=== PATIENT | male | born 1990 | race African-American/Black ===

== ENCOUNTER 2016-07-13 13:15 | Emergency (ER) | payer MEDICAID ==
[~2016-07-13] VITALS: Ht 170.2 cm; Wt 76.0 kg
[2016-07-13 14:47] VITALS: BP 103/67
== END 2016-07-13 16:26 | disposition home or self-care (01) ==
LOC: ER 15:24
DX: Z48.02 Encounter for removal of sutures (principal); F17.210 Nicotine dependence, cigarettes, uncomplicated
CPT/HCPCS: 99281; Z7610